=== PATIENT | female | born 1940 | race Caucasian/White ===

== ENCOUNTER 2023-11-12 18:12 | Inpatient (IN) | payer MEDICAID, MEDICARE ==
[2023-11-12 18:52] LABS: BASOPHILS PERCENT AUTO 0.1 % (0.1-1.3); EOSINOPHILS ABSOLUTE AUTO 0.05 K/uL (0.00-0.40); EOSINOPHILS PERCENT AUTO 0.3 % (0.0-5.4); HEMATOCRIT 35.4 % (34.3-46.0); HEMOGLOBIN 12.2 g/dL (11.2-15.5); IMMATURE GRAN ABSOLUTE AUTO 0.06 K/uL (0.00-0.23); IMMATURE GRAN PERCENT AUTO 0.4 % (0.0-0.7); LYMPHOCYTES ABSOLUTE AUTO 0.93 K/uL (0.8-3.3); LYMPHOCYTES PERCENT AUTO 6.2 % (11.4-47.7); MEAN CORPUSCULAR HGB CONC 34.5 g/dL (31.6-35.5); MEAN CORPUSCULAR VOLUME 90.1 fL (81.4-99.0); MONOCYTES ABSOLUTE AUTO 1.38 K/uL (0.20-0.90); MONOCYTES PERCENT AUTO 9.1 % (3.3-12.6); NEUTROPHILS ABSOLUTE AUTO 12.68 K/uL (1.0-7.6); NEUTROPHILS PERCENT AUTO 83.9 % (40.0-78.1); PLATELET COUNT,PLT 362 K/uL (130-375); RED BLOOD CELL COUNT 3.93 M/uL (3.77-5.24); WHITE BLOOD CELL COUNT,WBC 15.1 K/uL (3.2-11.0)
[2023-11-12 18:56] LABS: BASOPHILS ABSOLUTE AUTO 0.02 K/uL (0.00-0.10)
[2023-11-12 19:17] LABS: CALCIUM 8.9 mg/dL (8.5-10.1); CREATININE 0.7 mg/dL (0.6-1.0); EST CRCL DRUG DOSING (CG) 46.47 mL/min; TROPONIN I HIGH SENSITIVITY 10.2 pg/mL (<=60.3)
[2023-11-12 19:19] LABS: ANION GAP 12.8 mmol/L (5.0-14.0); POTASSIUM,K 2.8 mmol/L (3.6-5.2)
[2023-11-12 20:12] LABS: BASE EXCESS VENOUS 7.3 mm/L; BICARBONATE,VENOUS 31.3 mmol/L; CARBOXYHEMOGLOBIN 2.3 % (0.0-1.6); METHEMOGLOBIN 0.6 %; O2 SATURATION VENOUS 96.1; OXYHEMOGLOBIN 93.3 %; PCO2 VENOUS 42.4 mm/Hg; PO2 VENOUS 77.4 mm/Hg; TOTAL HEMOGLOBIN 12.4 g/dL (12.0-16.0)
[2023-11-12] MEDS: NS + KCl 20mEq/L 1,000 ML IV SCH (20:17)
[2023-11-12] MEDS: cefTRIAXone 2 GM in Sodium Chloride 0.9% 50 ML IV ONE (20:26)
[2023-11-12] MEDS: Doxycycline 100 MG Cap PO ONE (20:26)
[2023-11-12] MEDS: Sodium Chloride 0.9% 10 ML Syringe FLUSH ONE (20:28)
[2023-11-12] MEDS: Iopamidol 612 MG/ML 100 ML Bottle IV ONE (20:43)
[2023-11-12] MEDS: Sodium Chloride 0.9% 100 ML IV ONE (20:43)
[2023-11-12 21:02] LABS: CORONAVIRUS COVID-19 NAA NEGATIVE (NEGATIVE); INFLUENZA A NAA NEGATIVE (NEGATIVE); INFLUENZA B NAA NEGATIVE (NEGATIVE); RESPIRATORY SYNCYTIAL VIR NAA NEGATIVE (NEGATIVE)
[2023-11-12] MEDS ORDERED: oxyCODONE 5 MG Tab PO PRN (22:12)
[2023-11-12] MEDS ORDERED: Ondansetron 4 MG/2 ML SDV IV PRN (22:12)
[2023-11-12] MEDS ORDERED: Acetaminophen 325 MG Tab PO PRN (22:12)
[2023-11-12] MEDS ORDERED: OXYGEN INH PRN (22:28)
[2023-11-12] MEDS: Pantoprazole 40 MG Vial IV SCH (23:20)
[2023-11-12] MEDS: Sodium Chloride 0.9% 1,000 ML IV SCH (23:20)
[2023-11-12 23:21] LABS: APPEARANCE,URINE SLIGHTLY CLOUDY (CLEAR); BILIRUBIN,URINE NEGATIVE (NEGATIVE); COLOR,URINE YELLOW (YELLOW); GLUCOSE,URINE NEGATIVE (NEGATIVE); KETONES,URINE NEGATIVE (NEGATIVE); LEUKOCYTE ESTERASE,URINE SMALL (NEGATIVE); NITRITE,URINE NEGATIVE (NEGATIVE); OCCULT BLOOD,URINE TRACE-INTACT (NEGATIVE); PROTEIN,URINE NEGATIVE (NEGATIVE)
[2023-11-12 23:35] LABS: AMORPHOUS SEDIMENT,URINE NOT SEEN; BACTERIA,URINE MODERATE; EPITHELIAL CELLS,URINE FEW; MUCUS,URINE NOT SEEN; RBC,URINE 0-5 (0-5)
[2023-11-13] MEDS: methylPREDNISolone Sodium Succinate 40 MG/1 ML SDV IVPUSH SCH ×2 (01:33→08:55)
[2023-11-13 04:50] LABS: BASOPHILS ABSOLUTE AUTO 0.03 K/uL (0.00-0.10); BASOPHILS PERCENT AUTO 0.2 % (0.1-1.3); EOSINOPHILS PERCENT AUTO 0.1 % (0.0-5.4); HEMATOCRIT 35.3 % (34.3-46.0); HEMOGLOBIN 11.8 g/dL (11.2-15.5); IMMATURE GRAN ABSOLUTE AUTO 0.08 K/uL (0.00-0.23); IMMATURE GRAN PERCENT AUTO 0.5 % (0.0-0.7); LYMPHOCYTES ABSOLUTE AUTO 0.53 K/uL (0.8-3.3); LYMPHOCYTES PERCENT AUTO 3.4 % (11.4-47.7); MEAN CORPUSCULAR HEMOGLOBIN 30.6 pg (31.6-35.5); MEAN CORPUSCULAR HGB CONC 33.4 g/dL (31.6-35.5); MEAN CORPUSCULAR VOLUME 91.5 fL (81.4-99.0); MONOCYTES ABSOLUTE AUTO 0.33 K/uL (0.20-0.90); MONOCYTES PERCENT AUTO 2.1 % (3.3-12.6); NEUTROPHILS ABSOLUTE AUTO 14.71 K/uL (1.0-7.6); NEUTROPHILS PERCENT AUTO 93.7 % (40.0-78.1); PLATELET COUNT,PLT 354 K/uL (130-375); RED BLOOD CELL COUNT 3.86 M/uL (3.77-5.24); WHITE BLOOD CELL COUNT,WBC 15.7 K/uL (3.2-11.0)
[2023-11-13 05:19] LABS: CALCIUM 8.7 mg/dL (8.5-10.1); CREATININE 0.6 mg/dL (0.6-1.0); EST CRCL DRUG DOSING (CG) 54.22 mL/min; POTASSIUM,K 3.2 mmol/L (3.6-5.2)
[2023-11-13 05:21] LABS: EOSINOPHILS ABSOLUTE AUTO 0.01 K/uL (0.00-0.40)
[2023-11-13 05:22] LABS: ANION GAP 11.2 mmol/L (5.0-14.0)
[2023-11-13] MEDS: Albuterol/Ipratropium 3.0-0.5 MG/3 ML Neb Soln NEB SCH ×2 (07:38→11:07)
[2023-11-13] MEDS: Calcium Carbonate/Vitamin D3 1500 MG-400 Units Tab PO SCH (08:54)
[2023-11-13] MEDS: Ferrous Sulfate 325 MG Tab PO SCH (08:54)
[2023-11-13] MEDS: Aspirin 81 MG Tab.EC PO SCH (08:54)
[2023-11-13] MEDS: Potassium Chloride 20 MEQ Tab.ER PO ONE ×2 (08:54→17:35)
[2023-11-13] MEDS: buPROPion 150 MG Tab.ER PO SCH (08:54)
[2023-11-13] MEDS: Doxycycline 100 MG in Sodium Chloride 0.9% 100 ML IV SCH (08:55)
[2023-11-13] MEDS: Multivitamins with Iron/Calcium/Folic Acid/Minerals Tab PO SCH (08:55)
[2023-11-13] MEDS: Enoxaparin 40 MG/0.4 ML Syringe SUBCUT SCH (08:55)
[2023-11-13] MEDS: cefTRIAXone 1 GM in Sodium Chloride 0.9% 50 ML IV SCH (10:24)
[2023-11-13] MEDS ORDERED: Phenazopyridine 95 MG Tab PO PRN (12:11)
[2023-11-13] MEDS: Metoprolol Tartrate 25 MG Tab PO SCH (14:59)
[2023-11-13] MEDS: atorvaSTATin 20 MG Tab PO SCH (20:37)
[2023-11-13] MEDS: Pantoprazole 40 MG Tab.CR PO SCH (20:37)
[2023-11-13] MEDS: Tamsulosin 0.4 MG Cap.ER PO SCH (20:37)
[2023-11-14 06:02] LABS: BASOPHILS PERCENT AUTO 0.2 % (0.1-1.3); EOSINOPHILS ABSOLUTE AUTO 0.03 K/uL (0.00-0.40); EOSINOPHILS PERCENT AUTO 0.2 % (0.0-5.4); HEMATOCRIT 35.2 % (34.3-46.0); HEMOGLOBIN 11.7 g/dL (11.2-15.5); IMMATURE GRAN ABSOLUTE AUTO 0.09 K/uL (0.00-0.23); IMMATURE GRAN PERCENT AUTO 0.7 % (0.0-0.7); LYMPHOCYTES ABSOLUTE AUTO 1.09 K/uL (0.8-3.3); LYMPHOCYTES PERCENT AUTO 8.3 % (11.4-47.7); MEAN CORPUSCULAR HEMOGLOBIN 30.6 pg (31.6-35.5); MEAN CORPUSCULAR HGB CONC 33.2 g/dL (31.6-35.5); MEAN CORPUSCULAR VOLUME 92.1 fL (81.4-99.0); MONOCYTES ABSOLUTE AUTO 1.15 K/uL (0.20-0.90); MONOCYTES PERCENT AUTO 8.7 % (3.3-12.6); NEUTROPHILS ABSOLUTE AUTO 10.82 K/uL (1.0-7.6); NEUTROPHILS PERCENT AUTO 81.9 % (40.0-78.1); PLATELET COUNT,PLT 410 K/uL (130-375); RED BLOOD CELL COUNT 3.82 M/uL (3.77-5.24); WHITE BLOOD CELL COUNT,WBC 13.2 K/uL (3.2-11.0)
[2023-11-14 06:04] LABS: BASOPHILS ABSOLUTE AUTO 0.02 K/uL (0.00-0.10)
[2023-11-14] MEDS: Albuterol 0.083% 2.5 MG/3 ML Neb Soln NEB PRN (06:11)
[2023-11-14 06:14] LABS: CALCIUM 9.4 mg/dL (8.5-10.1); CREATININE 0.7 mg/dL (0.6-1.0); EST CRCL DRUG DOSING (CG) 46.47 mL/min; POTASSIUM,K 3.9 mmol/L (3.6-5.2)
[2023-11-14 06:23] LABS: ANION GAP 11.9 mmol/L (5.0-14.0)
[2023-11-14] MEDS: predniSONE 20 MG Tab PO SCH (08:03)
[2023-11-14] MEDS: Magnesium Oxide 400 MG Tab PO SCH (09:35)
[2023-11-14] MEDS: Metoprolol Succinate 50 MG Tab.ER PO SCH (09:35)
[2023-11-14] MEDS: Magnesium Sulfate/Water 2 GM in Premix Bag 1 BAG IV SCH (10:50)
[2023-11-14] MEDS: Melatonin 3 MG Tab PO PRN (20:27)
[2023-11-15] MEDS: Haloperidol Lactate 5 MG/ML SDV IVPUSH ONE (04:08)
[2023-11-15 05:48] LABS: BASOPHILS PERCENT AUTO 0.1 % (0.1-1.3); EOSINOPHILS ABSOLUTE AUTO 0.08 K/uL (0.00-0.40); EOSINOPHILS PERCENT AUTO 0.6 % (0.0-5.4); HEMATOCRIT 35.4 % (34.3-46.0); HEMOGLOBIN 11.8 g/dL (11.2-15.5); IMMATURE GRAN ABSOLUTE AUTO 0.09 K/uL (0.00-0.23); IMMATURE GRAN PERCENT AUTO 0.7 % (0.0-0.7); LYMPHOCYTES ABSOLUTE AUTO 1.26 K/uL (0.8-3.3); MEAN CORPUSCULAR HEMOGLOBIN 30.7 pg (31.6-35.5); MEAN CORPUSCULAR HGB CONC 33.3 g/dL (31.6-35.5); MEAN CORPUSCULAR VOLUME 92.2 fL (81.4-99.0); MONOCYTES ABSOLUTE AUTO 1.35 K/uL (0.20-0.90); MONOCYTES PERCENT AUTO 10.8 % (3.3-12.6); NEUTROPHILS ABSOLUTE AUTO 9.75 K/uL (1.0-7.6); NEUTROPHILS PERCENT AUTO 77.8 % (40.0-78.1); PLATELET COUNT,PLT 432 K/uL (130-375); RED BLOOD CELL COUNT 3.84 M/uL (3.77-5.24); WHITE BLOOD CELL COUNT,WBC 12.5 K/uL (3.2-11.0)
[2023-11-15 05:51] LABS: BASOPHILS ABSOLUTE AUTO 0.01 K/uL (0.00-0.10)
[2023-11-15 06:00] LABS: CALCIUM 9.3 mg/dL (8.5-10.1); CREATININE 0.7 mg/dL (0.6-1.0); EST CRCL DRUG DOSING (CG) 46.07 mL/min; MAGNESIUM 2.2 mg/dL (1.8-2.4); POTASSIUM,K 3.7 mmol/L (3.6-5.2)
[2023-11-15 06:09] LABS: ANION GAP 9.7 mmol/L (5.0-14.0)
[2023-11-15] MEDS: Bisacodyl 5 MG Tab PO PRN (09:38)
[2023-11-15] MEDS: Docusate Sodium 100 MG Cap PO PRN (09:38)
[2023-11-15] MEDS ORDERED: Haloperidol 1 MG Tab PO PRN (10:12)
[2023-11-15] MEDS: Cefdinir 300 MG Cap PO SCH (20:18)
[2023-11-15] MEDS: Doxycycline 100 MG Cap PO SCH (20:18)
[2023-11-15] MEDS: Melatonin 3 MG Tab PO SCH (20:18)
[2023-11-16 05:25] VITALS: BP 136/71
[2023-11-16 05:58] LABS: BASOPHILS PERCENT AUTO 0.2 % (0.1-1.3); EOSINOPHILS ABSOLUTE AUTO 0.09 K/uL (0.00-0.40); EOSINOPHILS PERCENT AUTO 0.8 % (0.0-5.4); HEMATOCRIT 35.8 % (34.3-46.0); HEMOGLOBIN 11.8 g/dL (11.2-15.5); IMMATURE GRAN ABSOLUTE AUTO 0.07 K/uL (0.00-0.23); IMMATURE GRAN PERCENT AUTO 0.6 % (0.0-0.7); LYMPHOCYTES ABSOLUTE AUTO 0.97 K/uL (0.8-3.3); LYMPHOCYTES PERCENT AUTO 8.4 % (11.4-47.7); MEAN CORPUSCULAR HEMOGLOBIN 30.3 pg (31.6-35.5); MONOCYTES ABSOLUTE AUTO 1.28 K/uL (0.20-0.90); MONOCYTES PERCENT AUTO 11.1 % (3.3-12.6); NEUTROPHILS ABSOLUTE AUTO 9.12 K/uL (1.0-7.6); NEUTROPHILS PERCENT AUTO 78.9 % (40.0-78.1); PLATELET COUNT,PLT 416 K/uL (130-375); RED BLOOD CELL COUNT 3.89 M/uL (3.77-5.24); WHITE BLOOD CELL COUNT,WBC 11.6 K/uL (3.2-11.0)
[2023-11-16 06:00] LABS: BASOPHILS ABSOLUTE AUTO 0.02 K/uL (0.00-0.10)
[2023-11-16 06:16] LABS: ANION GAP 8.2 mmol/L (5.0-14.0); CALCIUM 9.1 mg/dL (8.5-10.1); CREATININE 0.7 mg/dL (0.6-1.0); EST CRCL DRUG DOSING (CG) 46.07 mL/min; POTASSIUM,K 3.2 mmol/L (3.6-5.2)
[2023-11-16 07:12] VITALS: PULSE 100
[2023-11-16] MEDS ORDERED: Potassium Chloride 20 MEQ Tab.ER ONE (12:51)
[2023-11-16] MEDS: Potassium Chloride 20 MEQ Tab.ER PO ONE ×2 (12:52→13:05)
== END 2023-11-16 13:20 | disposition home or self-care (01) | DRG 193 ==
LOC: JP.ED 18:12 → JP.MS 20:31
PROVIDERS: ADMIT Internal Medicine; ATTEND Hospitalist
DX: J44.9 Chronic obstructive pulmonary disease, unspecified (principal); J18.9 Pneumonia, unspecified organism; J96.21 Acute and chronic respiratory failure with hypoxia; J44.1 Chronic obstructive pulmonary disease with (acute) exacerbation; J44.0 Chronic obstructive pulmonary disease with (acute) lower respiratory infection; Z88.8 Allergy status to other drugs, medicaments and biological substances; J20.9 Acute bronchitis, unspecified; Z66 Do not resuscitate; E87.6 Hypokalemia; E78.00 Pure hypercholesterolemia, unspecified; K21.9 Gastro-esophageal reflux disease without esophagitis; R41.0 Disorientation, unspecified; E83.42 Hypomagnesemia; R33.9 Retention of urine, unspecified; Z88.2 Allergy status to sulfonamides; Z98.49 Cataract extraction status, unspecified eye; Z90.49 Acquired absence of other specified parts of digestive tract; Z99.81 Dependence on supplemental oxygen; Z79.82 Long term (current) use of aspirin; Z98.890 Other specified postprocedural states; Z79.899 Other long term (current) drug therapy
CPT/HCPCS: 0241U; 36415; 71045; 71260; 80048; 81001; 82803; 83605; 83735; 84484; 85025; 85379; 86140; 87040; 87086; 93005; 93010; 94640; 96374; 96375; 99222; 99232; 99233; 99238; 99285; A9270-GY; C9113; J0696; J1650; J2920; J3475; J3480; J3490; J7030; J7512; J7620; Q9967

== ENCOUNTER 2023-11-29 16:34 | Inpatient (IN) | payer MEDICARE ==
[2023-11-29 17:15] LABS: BASOPHILS ABSOLUTE AUTO 0.03 K/uL (0.00-0.10); BASOPHILS PERCENT AUTO 0.2 % (0.1-1.3); EOSINOPHILS ABSOLUTE AUTO 0.11 K/uL (0.00-0.40); EOSINOPHILS PERCENT AUTO 0.8 % (0.0-5.4); HEMATOCRIT 36.9 % (34.3-46.0); HEMOGLOBIN 12.4 g/dL (11.2-15.5); IMMATURE GRAN ABSOLUTE AUTO 0.04 K/uL (0.00-0.23); IMMATURE GRAN PERCENT AUTO 0.3 % (0.0-0.7); LYMPHOCYTES ABSOLUTE AUTO 1.16 K/uL (0.8-3.3); LYMPHOCYTES PERCENT AUTO 8.1 % (11.4-47.7); MEAN CORPUSCULAR HEMOGLOBIN 30.8 pg (31.6-35.5); MEAN CORPUSCULAR HGB CONC 33.6 g/dL (31.6-35.5); MEAN CORPUSCULAR VOLUME 91.6 fL (81.4-99.0); MONOCYTES ABSOLUTE AUTO 1.12 K/uL (0.20-0.90); MONOCYTES PERCENT AUTO 7.8 % (3.3-12.6); NEUTROPHILS ABSOLUTE AUTO 11.83 K/uL (1.0-7.6); NEUTROPHILS PERCENT AUTO 82.8 % (40.0-78.1); PLATELET COUNT,PLT 379 K/uL (130-375); RED BLOOD CELL COUNT 4.03 M/uL (3.77-5.24); WHITE BLOOD CELL COUNT,WBC 14.3 K/uL (3.2-11.0)
[2023-11-29 17:29] LABS: A/G RATIO 0.9 (1.2-2.2); ALANINE AMINOTRANSFERASE,ALT 30 U/L (12-78); ALBUMIN 3.5 g/dL (3.4-5.0); ALKALINE PHOSPHATASE 97 U/L (46-116); ASPARTATE AMNIOTRANSFERASE,AST 23 U/L (15-37); BILIRUBIN TOTAL 0.3 mg/dL (0.2-1.0); BLOOD UREA NITROGEN,BUN 24 mg/dL (7-18); CALCIUM 9.4 mg/dL (8.5-10.1); CARBON DIOXIDE,CO2 28 mmol/L (21-32); CHLORIDE,CL 98 mmol/L (100-108); CREATININE 0.8 mg/dL (0.6-1.0); EST CRCL DRUG DOSING (CG) 40.66 mL/min; ESTIMATED GFR 72 mL/min (>60); GLUCOSE RANDOM 141 mg/dL (74-106); PROTEIN TOTAL,TP 7.5 g/dL (6.4-8.2); SODIUM,NA 139 mmol/L (140-148); TROPONIN I HIGH SENSITIVITY 9.5 pg/mL (<=60.3)
[2023-11-29] MEDS: Sodium Chloride 0.9% 1,000 ML IV SCH (17:35)
[2023-11-29] MEDS: Sodium Chloride 0.9% 10 ML Syringe FLUSH PRN (17:37)
[2023-11-29] MEDS: Sodium Chloride 0.9% 10 ML Syringe FLUSH ONE (18:35)
[2023-11-29] MEDS: Iopamidol 755 Mg/ML 100 ML Bottle IV ONE (19:15)
[2023-11-29] MEDS: Sodium Chloride 0.9% 100 ML IV ONE (19:15)
[2023-11-29 20:19] LABS: CORONAVIRUS COVID-19 NAA NEGATIVE (NEGATIVE); INFLUENZA A NAA NEGATIVE (NEGATIVE); INFLUENZA B NAA NEGATIVE (NEGATIVE); RESPIRATORY SYNCYTIAL VIR NAA NEGATIVE (NEGATIVE)
[2023-11-29] MEDS: Potassium Chloride 20 MEQ Tab.ER PO ONE (20:20)
[2023-11-29 20:51] LABS: APPEARANCE,URINE CLEAR (CLEAR); BILIRUBIN,URINE NEGATIVE (NEGATIVE); COLOR,URINE YELLOW (YELLOW); GLUCOSE,URINE NEGATIVE (NEGATIVE); KETONES,URINE NEGATIVE (NEGATIVE); LEUKOCYTE ESTERASE,URINE NEGATIVE (NEGATIVE); NITRITE,URINE NEGATIVE (NEGATIVE); OCCULT BLOOD,URINE NEGATIVE (NEGATIVE); PH,URINE 6.5 (5.0-8.0); PROTEIN,URINE NEGATIVE (NEGATIVE); UROBILINOGEN,URINE 0.2 EU/dL (0.2-1.0)
[2023-11-29 20:57] LABS: AMORPHOUS SEDIMENT,URINE NOT SEEN; BACTERIA,URINE RARE; EPITHELIAL CELLS,URINE FEW; MUCUS,URINE NOT SEEN; RBC,URINE 0-5 (0-5); WBC,URINE 0-5 (0-5)
[2023-11-29] MEDS: Cefepime 2 GM in Sodium Chloride 0.9% 50 ML IV ONE (21:53)
[2023-11-29] MEDS ORDERED: Ondansetron 4 MG Tab.DIS PO PRN (23:47)
[2023-11-29] MEDS ORDERED: Acetaminophen 325 MG Tab PO PRN (23:47)
[2023-11-29] MEDS ORDERED: Ondansetron 4 MG/2 ML SDV IV PRN (23:47)
[2023-11-29] MEDS ORDERED: Docusate Sodium 100 MG Cap PO PRN (23:47)
[2023-11-29] MEDS ORDERED: oxyCODONE 5 MG Tab PO PRN (23:47)
[2023-11-29] MEDS ORDERED: LORazepam 2 MG/ML SDV IV PRN (23:47)
[2023-11-29] MEDS ORDERED: Naloxone 0.4 MG/ML SDV IVPUSH PRN (23:47)
[2023-11-29] MEDS ORDERED: Bisacodyl 5 MG Tab PO PRN (23:47)
[2023-11-29] MEDS ORDERED: Morphine 2 MG/ML SYRINGE IVPUSH PRN (23:47)
[2023-11-30] MEDS: Pantoprazole 40 MG Vial IV SCH (00:38)
[2023-11-30] MEDS: Enoxaparin 40 MG/0.4 ML Syringe SUBCUT SCH (00:38)
[2023-11-30] MEDS: Albuterol/Ipratropium 3.0-0.5 MG/3 ML Neb Soln NEB PRN (02:01)
[2023-11-30] MEDS: methylPREDNISolone Sodium Succinate 125 MG/2 ML SDV IVPUSH ONE (02:03)
[2023-11-30 05:25] LABS: BASOPHILS PERCENT AUTO 0.1 % (0.1-1.3); EOSINOPHILS PERCENT AUTO 0.1 % (0.0-5.4); HEMATOCRIT 35.7 % (34.3-46.0); HEMOGLOBIN 11.8 g/dL (11.2-15.5); IMMATURE GRAN ABSOLUTE AUTO 0.05 K/uL (0.00-0.23); IMMATURE GRAN PERCENT AUTO 0.4 % (0.0-0.7); LYMPHOCYTES ABSOLUTE AUTO 0.45 K/uL (0.8-3.3); LYMPHOCYTES PERCENT AUTO 3.3 % (11.4-47.7); MEAN CORPUSCULAR HEMOGLOBIN 30.6 pg (31.6-35.5); MEAN CORPUSCULAR HGB CONC 33.1 g/dL (31.6-35.5); MEAN CORPUSCULAR VOLUME 92.7 fL (81.4-99.0); MONOCYTES ABSOLUTE AUTO 0.11 K/uL (0.20-0.90); MONOCYTES PERCENT AUTO 0.8 % (3.3-12.6); NEUTROPHILS ABSOLUTE AUTO 13.04 K/uL (1.0-7.6); NEUTROPHILS PERCENT AUTO 95.3 % (40.0-78.1); PLATELET COUNT,PLT 318 K/uL (130-375); RED BLOOD CELL COUNT 3.85 M/uL (3.77-5.24); WHITE BLOOD CELL COUNT,WBC 13.7 K/uL (3.2-11.0)
[2023-11-30 05:27] LABS: BASOPHILS ABSOLUTE AUTO 0.02 K/uL (0.00-0.10); EOSINOPHILS ABSOLUTE AUTO 0.02 K/uL (0.00-0.40)
[2023-11-30 05:49] LABS: CALCIUM 8.8 mg/dL (8.5-10.1); CREATININE 0.5 mg/dL (0.6-1.0); EST CRCL DRUG DOSING (CG) 65.06 mL/min; POTASSIUM,K 3.4 mmol/L (3.6-5.2)
[2023-11-30 05:52] LABS: ANION GAP 14.4 mmol/L (5.0-14.0)
[2023-11-30] MEDS ORDERED: Cefepime 2 GM in Sodium Chloride 0.9% 50 ML IV SCH (06:00)
[2023-11-30] MEDS ORDERED: Albuterol/Ipratropium 3.0-0.5 MG/3 ML Neb Soln NEB SCH (06:00)
[2023-11-30] MEDS: Albuterol/Ipratropium 3.0-0.5 MG/3 ML Neb Soln NEB SCH (07:03)
[2023-11-30] MEDS: methylPREDNISolone Sodium Succinate 40 MG/1 ML SDV IVPUSH SCH (08:09)
[2023-11-30] MEDS: Sodium Chloride 0.9% 1,000 ML IV SCH (08:16)
[2023-11-30] MEDS: Cefepime 2 GM in Sodium Chloride 0.9% 50 ML IV SCH (09:33)
[2023-11-30] MEDS: Potassium Chloride 20 MEQ Tab.ER PO ONE ×2 (09:33→16:47)
[2023-11-30] MEDS ORDERED: Vancomycin 1 GM SDV IV SCH (11:10)
[2023-11-30] MEDS: Metoprolol Tartrate 25 MG Tab PO SCH (15:02)
[2023-11-30] MEDS: buPROPion 150 MG Tab.ER PO SCH (15:02)
[2023-11-30] MEDS: Tamsulosin 0.4 MG Cap.ER PO SCH (20:32)
[2023-11-30] MEDS: Aspirin 81 MG Tab.Chew PO SCH (20:32)
[2023-11-30] MEDS: atorvaSTATin 20 MG Tab PO SCH (20:33)
[2023-12-01 05:00] LABS: HEMATOCRIT 32.8 % (34.3-46.0); HEMOGLOBIN 10.8 g/dL (11.2-15.5); MEAN CORPUSCULAR HEMOGLOBIN 30.7 pg (31.6-35.5); MEAN CORPUSCULAR HGB CONC 32.9 g/dL (31.6-35.5); MEAN CORPUSCULAR VOLUME 93.2 fL (81.4-99.0); RED BLOOD CELL COUNT 3.52 M/uL (3.77-5.24); WHITE BLOOD CELL COUNT,WBC 10.3 K/uL (3.2-11.0)
[2023-12-01 05:16] LABS: ANION GAP 5.9 mmol/L (5.0-14.0); CALCIUM 8.7 mg/dL (8.5-10.1); CREATININE 0.5 mg/dL (0.6-1.0); EST CRCL DRUG DOSING (CG) 65.06 mL/min; POTASSIUM,K 3.7 mmol/L (3.6-5.2)
[2023-12-01 05:51] VITALS: BP 140/77; PULSE 105
[2023-12-01] MEDS ORDERED: buPROPion 150 MG Tab.ER PO SCH (14:30)
== END 2023-12-01 13:30 | disposition home or self-care (01) | DRG 190 ==
LOC: JP.ED 16:34 → JP.MS 22:10
PROVIDERS: ADMIT Hospitalist; ATTEND Hospitalist
DX: J44.1 Chronic obstructive pulmonary disease with (acute) exacerbation (principal); J18.9 Pneumonia, unspecified organism; J96.21 Acute and chronic respiratory failure with hypoxia; D84.9 Immunodeficiency, unspecified; J44.0 Chronic obstructive pulmonary disease with (acute) lower respiratory infection; E87.6 Hypokalemia; Z66 Do not resuscitate; K21.9 Gastro-esophageal reflux disease without esophagitis; H91.90 Unspecified hearing loss, unspecified ear; E78.00 Pure hypercholesterolemia, unspecified; H54.7 Unspecified visual loss; Z88.2 Allergy status to sulfonamides; Z79.82 Long term (current) use of aspirin; Z90.49 Acquired absence of other specified parts of digestive tract; Z98.49 Cataract extraction status, unspecified eye; Z87.891 Personal history of nicotine dependence; Z79.899 Other long term (current) drug therapy
CPT/HCPCS: 0241U; 36415; 71045; 71045-26; 71275; 80048; 80053; 81001; 83605; 84484; 85025; 85027; 85379; 86140; 87040; 93005; 93010; 94640; 96365; 97110-GP; 97161-GP; 99222; 99232; 99238; 99285; 99285-25; A9270-GY; C9113; J0692; J1650; J2920; J2930; J3370; J3490; J7030; J7050; J7620; Q9967